=== PATIENT | female | born 1995 | race Asian ===

== ENCOUNTER 2021-02-18 21:53 | Emergency (ER) | payer BC ==
[~2021-02-18] VITALS: Ht 167.6 cm; Wt 44.0 kg
[2021-02-18 22:15] VITALS: BP_SYST 93
[2021-02-18 22:33] LABS: BILIRUBIN,URINE NEGATIVE (NEGATIVE); COLOR,URINE YELLOW (YELLOW); GLUCOSE,URINE NEGATIVE (NEGATIVE); KETONES,URINE TRACE (NEGATIVE); LEUKOCYTE ESTERASE ,URINE 1+ (NEGATIVE); NITRITE, URINE NEGATIVE (NEGATIVE); PROTEIN URINE NEGATIVE (NEGATIVE); UROBILINOGEN,URINE 0.2 (0.2-1.0)
[2021-02-18 22:36] LABS: BLOOD, URINE TRACE (NEGATIVE); CLARITY/URINE HAZY (CLEAR)
[2021-02-18 22:45] LABS: BACTERIA,URINE MANY /HPF (None Seen); RBC,URINE 0-3 /HPF (0-3)
[2021-02-18] MEDS ORDERED: ONDANSETRON 4 MG ODT TAB PO ONE (22:45)
[2021-02-18 22:46] LABS: MUCUS,URINE 1+ /LPF (None Seen)
[2021-02-18 23:41] VITALS: BP_SYST 93
== END 2021-02-18 23:41 | disposition home or self-care (01) ==
LOC: SED 21:53
DX: R10.13 Epigastric pain (principal)
CPT/HCPCS: 81000; 81025; 87086; 99283; Q0162